=== PATIENT | male | born 1995 | race Hispanic/Latino ===

== ENCOUNTER 2022-01-10 07:50 | Inpatient (IN) | payer OTHER ==
[2022-01-10 08:17] LABS: Mean Corpuscular HGB CONC 33.4 g/dL (32.0-36.0); Mean Corpuscular Hemoglobin 30.6 pg (27.0-31.0); Mean Corpuscular Volume 91.6 fl (78.0-98.0); Mean Platelet Volume 9.5 fL (7.4-10.4); Platelet Count 178 10x3/uL (130-400); RBC Distribution Width 12.1 % (11.5-14.5); Red Blood Cell (RBC) Count 4.91 mill/uL (4.70-6.10); White Blood Cell (WBC) Count 25.6 10x3/uL (4.8-10.8)
[2022-01-10] MEDS ORDERED: Rocuronium Bromide 10 MG/ML (10ML VIAL) ONE (08:17)
[2022-01-10] MEDS ORDERED: Ketamine 50 MG/ML (10ML VIAL) ONE (08:18)
[2022-01-10 08:29] LABS: ALT (SGPT) 129 U/L (8-55); AST (SGOT) 188 U/L (5-34); Albumin 3.7 g/dL (3.5-5.0); Alcohol Less than 10 mg/dL (Less than 10); Alkaline Phosphatase 98 U/L (40-110); Anion Gap 15 mmol/L (10-20); BUN (Urea Nitrogen) 19 mg/dL (8.9-20.6); Bilirubin, Total 0.5 mg/dL (0.2-1.2); Calc. Creatinine Clearance 0 mL/min (70-130); Calcium 8.3 mg/dL (7.8-10.44); Carbon Dioxide 17 mmol/L (22-29); Chloride 108 mmol/L (98-107); Estimated GFR 71; Globulin 2.6 g/dL (2.4-3.5); Glucose 170 mg/dL (70-105); Potassium 3.3 mmol/L (3.5-5.1); Protein, Total 6.3 g/dL (6.0-8.3); Sodium 137 mmol/L (136-145)
[2022-01-10] MEDS ORDERED: FENTANYL 500 MCG/10 ML VIAL 2,000 MCG in Sodium Chloride 0.9% 60 ML IV SCH (08:45)
[2022-01-10 08:47] LABS: Band 34 % (5-11); Lymphocytes 4 % (21-51); MDiff Complete? YES; Monocytes 6 % (0-10); Neutrophil 50 % (42-75); Platelet Morphology Comment Appears Adequate; RBC Morphology Normal; Reactive Lymphocytes 6 % (0-10)
[2022-01-10] MEDS ORDERED: Midazolam HCl 2 mg/2 ml Vial ONE ×2 (08:53→17:08)
[2022-01-10] MEDS ORDERED: Boostrix 0.5 ML (Tdap) VIAL (>/=7 yrs of age) ONE (08:53)
[2022-01-10] MEDS ORDERED: CEFAZOLIN 1 GM VIAL ONE (08:53)
[2022-01-10] MEDS ORDERED: Iopamidol-370 76% 500 ML 1 ML ONE ×2 (08:54→08:55)
[2022-01-10] MEDS ORDERED: Ondansetron PF 4 MG/2 ML Vial IVP PRN (09:17)
[2022-01-10] MEDS ORDERED: hydrALAZINE 20 MG/ML VIAL SLOW IVP PRN (09:17)
[2022-01-10] MEDS ORDERED: TETANUS, DIPHTHERIA TOX,ADULT (TDVAX) 0.5 ML VIAL IM ONE (09:17)
[2022-01-10] MEDS ORDERED: Dextrose 50% Abboject 50 ML SYRINGE SLOW IVP PRN (09:17)
[2022-01-10] MEDS ORDERED: Insulin Regular 300 UNITS/3 ML VIAL SC PRN (09:17)
[2022-01-10] MEDS ORDERED: Dextrose 5% in Water 1,000 ML IV PRN (09:17)
[2022-01-10] MEDS ORDERED: Ventilator Sedation Protocol 1 EACH FS SCH (09:30)
[2022-01-10 09:37] LABS: INR-International Normal Ratio 1.5; PTT 30.9 sec (22.9-36.1); Prothrombin Time 18.7 sec (12.0-14.7)
[2022-01-10 09:38] LABS: Acetaminophen Less than 10.0 mcg/mL (10.0-30.0); Alcohol Less than 10 mg/dL (Less than 10); Salicylate Less than 8.0 mg/dL (15.0-30.0)
[2022-01-10 09:55] LABS: Magnesium 2.2 mg/dL (1.6-2.6); Phosphorus 3.6 mg/dL (2.3-4.7)
[2022-01-10 10:09] LABS: Amphetamine Not Detected (NotDetected); Barbiturates Screen Not Detected (NotDetected); Benzodiazepine Screen Not Detected (NotDetected); Cocaine Metabolite Screen Not Detected (NotDetected); Methadone Not Detected (NotDetected); Methamphetamine Not Detected (NotDetected); Opiate Screen Not Detected (NotDetected); Oxycodone Screen Not Detected (NotDetected); Phencyclidine (PCP) Not Detected (NotDetected); THC/Cannabinoid Screen Not Detected (NotDetected); Tricyclic Screen Not Detected (NotDetected)
[2022-01-10 10:21] LABS: Bacteria/HPF 2+ HPF (None Seen); Bilirubin Negative (Negative); Blood, Urine 3+ (Negative); Glucose, Urine (Dipstick) 50 mg/dL (Negative); Ketone, Urine Trace mg/dL (Negative); Leukocyte 75 Leu/uL (Negative); Nitrite Negative (Negative); Protein, Urine (Dipstick) 100 mg/dL (Neg-Trace); RBC/HPF Greater than 50 HPF (0-3); Specific Gravity, Urine 1.026 (1.002-1.036); Squamous Epithelial None Seen HPF (0-3); Urobilinogen Normal mg/dL (Less than 2); pH, Urine 5.5 (5.0-9.0)
[2022-01-10 10:22] LABS: Clarity Turbid (Clear)
[2022-01-10] MEDS: Sodium Chloride 0.9% 1,000 ML IV SCH ×3 (10:30→19:07)
[2022-01-10] MEDS ORDERED: Sodium Chloride 0.9% 1,000 ML IV SCH (11:00)
[2022-01-10 11:29] LABS: Actual Bicarbonate (HCO3a) 20.9 mEq/L (22-28); Base Excess (BEa) -4.4 mEq/L (-2.0 to +3.0); CO2 Tension 39.2 mmHg (35.0-45.0); Carboxyhemoglobin (COHb) 0.1 gm% (0.0-3.0); Hemoglobin (Hb) 12.9 g/dL (14.0-18.0); O2 Tension (PaO2), arterial 103.4 mmHg (80.0-100.0); Potassium - ABG Lab 3.88 mmol/L (3.70-5.30); pH, Arterial 7.35 (7.35-7.45)
[2022-01-10 11:30] LABS: Puncture Site RRA
[2022-01-10] MEDS ORDERED: Calcium Chloride 13.6 MEQ in Sodium Chloride 0.9% 100 ML IVPB SCH (12:15)
[2022-01-10 12:28] LABS: Lactic Acid 2.7 mmol/L (0.5-2.2)
[2022-01-10] MEDS ORDERED: Cyclobenzaprine 10 MG TAB PO PRN (15:08)
[2022-01-10 16:29] LABS: #Lymphocytes 0.7 thou/uL (1.20-3.40); #Monocytes 1.1 thou/uL (0.11-0.59); #Neutrophils 14.6 thou/uL (1.40-6.50); %Basophils 0.1 % (0.0-1.0); %Eosinophils 0.1 % (0.0-10.0); %Lymphocytes 4.3 % (21.0-51.0); %Monocytes 6.8 % (0.0-10.0); %Neutrophils 88.7 % (42.0-75.0); Hemoglobin 11.4 g/dL (14.0-18.0); Mean Corpuscular HGB CONC 33.5 g/dL (32.0-36.0); Mean Corpuscular Hemoglobin 30.5 pg (27.0-31.0); Mean Corpuscular Volume 91.1 fl (78.0-98.0); Mean Platelet Volume 9.6 fL (7.4-10.4); Platelet Count 131 10x3/uL (130-400); Red Blood Cell (RBC) Count 3.73 mill/uL (4.70-6.10); White Blood Cell (WBC) Count 16.4 10x3/uL (4.8-10.8)
[2022-01-10 16:39] LABS: Lactic Acid 2.7 mmol/L (0.5-2.2)
[2022-01-10 16:45] LABS: Anion Gap 12 mmol/L (10-20); BUN (Urea Nitrogen) 22 mg/dL (8.9-20.6); CK (CPK) 1442 U/L (30-200); Calc. Creatinine Clearance 100 mL/min (70-130); Calcium 8.6 mg/dL (7.8-10.44); Carbon Dioxide 21 mmol/L (22-29); Chloride 110 mmol/L (98-107); Estimated GFR 90; Glucose 140 mg/dL (70-105); Magnesium 1.9 mg/dL (1.6-2.6); Phosphorus 3.6 mg/dL (2.3-4.7); Potassium 4.5 mmol/L (3.5-5.1); Sodium 138 mmol/L (136-145)
[2022-01-10] MEDS ORDERED: Midazolam HCl 2 mg/2 ml Vial SLOW IVP SCH (17:00)
[2022-01-10] MEDS ORDERED: Calcium Chloride 1 GM/10 ML Abboject SYRINGE IVP SCH (19:15)
[2022-01-10] MEDS: Famotidine/PF 20 mg/2ml Vial SLOW IVP SCH (19:16)
[2022-01-11] MEDS ORDERED: Fentanyl CADD 100 ML ONE (01:54)
[2022-01-11] MEDS: Sodium Chloride 0.9% 1,000 ML IV SCH ×4 (06:00→20:52)
[2022-01-11 06:07] LABS: #Lymphocytes 1.7 thou/uL (1.20-3.40); #Monocytes 0.7 thou/uL (0.11-0.59); #Neutrophils 6.5 thou/uL (1.40-6.50); %Basophils 0.2 % (0.0-1.0); %Eosinophils 0.1 % (0.0-10.0); %Lymphocytes 18.6 % (21.0-51.0); %Neutrophils 73.2 % (42.0-75.0); ALT (SGPT) 66 U/L (8-55); AST (SGOT) 72 U/L (5-34); Albumin 2.8 g/dL (3.5-5.0); Alkaline Phosphatase 56 U/L (40-110); Anion Gap 8 mmol/L (10-20); BUN (Urea Nitrogen) 24 mg/dL (8.9-20.6); Bilirubin, Total 0.6 mg/dL (0.2-1.2); CK (CPK) 1771 U/L (30-200); Calc. Creatinine Clearance 118 mL/min (70-130); Calcium 8.6 mg/dL (7.8-10.44); Carbon Dioxide 23 mmol/L (22-29); Chloride 111 mmol/L (98-107); Estimated GFR 110; Globulin 1.8 g/dL (2.4-3.5); Glucose 132 mg/dL (70-105); Hemoglobin 8.6 g/dL (14.0-18.0); Magnesium 1.9 mg/dL (1.6-2.6); Mean Corpuscular HGB CONC 33.5 g/dL (32.0-36.0); Mean Corpuscular Hemoglobin 30.7 pg (27.0-31.0); Mean Corpuscular Volume 91.7 fl (78.0-98.0); Mean Platelet Volume 9.5 fL (7.4-10.4); Phosphorus 2.8 mg/dL (2.3-4.7); Platelet Count 99 10x3/uL (130-400); Platelet Morphology Comment Appears Decreased; Potassium 4.2 mmol/L (3.5-5.1); Protein, Total 4.6 g/dL (6.0-8.3); Sodium 138 mmol/L (136-145); White Blood Cell (WBC) Count 8.9 10x3/uL (4.8-10.8)
[2022-01-11] MEDS: Famotidine/PF 20 mg/2ml Vial SLOW IVP SCH ×2 (08:19→20:50)
[2022-01-11] MEDS ORDERED: Sodium Phosphate 15 MMOL in Sodium Chloride 0.9% 250 ML 250 ML IVPB SCH (09:00)
[2022-01-11] MEDS ORDERED: Prevnar 13-Val Conj/PF 0.5 ML SYRINGE IM ONE (09:00)
[2022-01-11] MEDS: Acetaminophen 325 MG TAB PO SCH ×5 (13:35→23:47)
[2022-01-11] MEDS: Acetaminophen/Codeine 30-300mg Tablet PO SCH ×4 (13:35→23:48)
[2022-01-11] MEDS ORDERED: FLU VACC QS2022-23(6MOS UP)/PF 60 MCG/0.5 ML SYRINGE IM ONE (19:30)
[2022-01-12 05:17] LABS: #Lymphocytes 1.1 thou/uL (1.20-3.40); #Monocytes 0.6 thou/uL (0.11-0.59); %Basophils 0.4 % (0.0-1.0); %Eosinophils 0.1 % (0.0-10.0); %Lymphocytes 14.6 % (21.0-51.0); %Monocytes 7.7 % (0.0-10.0); %Neutrophils 77.2 % (42.0-75.0); Hemoglobin 7.9 g/dL (14.0-18.0); Mean Corpuscular HGB CONC 33.8 g/dL (32.0-36.0); Mean Corpuscular Hemoglobin 30.5 pg (27.0-31.0); Mean Corpuscular Volume 90.2 fl (78.0-98.0); Mean Platelet Volume 9.8 fL (7.4-10.4); Platelet Count 92 10x3/uL (130-400); RBC Distribution Width 11.7 % (11.5-14.5); White Blood Cell (WBC) Count 7.8 10x3/uL (4.8-10.8)
[2022-01-12] MEDS: Acetaminophen 325 MG TAB PO SCH ×3 (05:32→17:06)
[2022-01-12] MEDS: Acetaminophen/Codeine 30-300mg Tablet PO SCH ×3 (05:32→17:06)
[2022-01-12] MEDS: Sodium Chloride 0.9% 1,000 ML IV SCH (05:33)
[2022-01-12 05:57] LABS: Anion Gap 10 mmol/L (10-20); BUN (Urea Nitrogen) 10 mg/dL (8.9-20.6); Calc. Creatinine Clearance 141 mL/min (70-130); Calcium 8.4 mg/dL (7.8-10.44); Carbon Dioxide 25 mmol/L (22-29); Chloride 105 mmol/L (98-107); Estimated GFR 126; Glucose 100 mg/dL (70-105); Phosphorus 2.9 mg/dL (2.3-4.7); Potassium 3.5 mmol/L (3.5-5.1); Sodium 136 mmol/L (136-145)
[2022-01-12] MEDS ORDERED: Furosemide 40 MG/4 ML VIAL SLOW IVP SCH (08:15)
[2022-01-12] MEDS: Famotidine 20 MG TAB PO SCH ×2 (10:38→20:54)
[2022-01-12] MEDS: Senokot S 8.6-50 MG TAB PO SCH (20:54)
[2022-01-13] MEDS: Acetaminophen/Codeine 30-300mg Tablet PO SCH ×5 (00:07→23:43)
[2022-01-13] MEDS: Acetaminophen 325 MG TAB PO SCH ×5 (00:08→23:43)
[2022-01-13 06:41] LABS: #Eosinphils 0.1 thou/uL (0.0-0.7); #Lymphocytes 1.1 thou/uL (1.20-3.40); #Monocytes 0.5 thou/uL (0.11-0.59); #Neutrophils 4.5 thou/uL (1.40-6.50); %Basophils 0.2 % (0.0-1.0); %Eosinophils 1.3 % (0.0-10.0); %Lymphocytes 17.2 % (21.0-51.0); %Monocytes 8.5 % (0.0-10.0); %Neutrophils 72.8 % (42.0-75.0); Mean Corpuscular HGB CONC 34.2 g/dL (32.0-36.0); Mean Corpuscular Volume 90.4 fl (78.0-98.0); Platelet Count 120 10x3/uL (130-400); RBC Distribution Width 11.6 % (11.5-14.5); White Blood Cell (WBC) Count 6.2 10x3/uL (4.8-10.8)
[2022-01-13 07:00] LABS: Anion Gap 12 mmol/L (10-20); BUN (Urea Nitrogen) 15 mg/dL (8.9-20.6); Calc. Creatinine Clearance 119 mL/min (70-130); Calcium 8.9 mg/dL (7.8-10.44); Carbon Dioxide 25 mmol/L (22-29); Chloride 105 mmol/L (98-107); Estimated GFR 125; Glucose 98 mg/dL (70-105); Magnesium 2.2 mg/dL (1.6-2.6); Phosphorus 3.1 mg/dL (2.3-4.7); Potassium 3.6 mmol/L (3.5-5.1); Sodium 138 mmol/L (136-145)
[2022-01-13] MEDS: Senokot S 8.6-50 MG TAB PO SCH ×2 (09:46→19:53)
[2022-01-13] MEDS: Polyethylene Glycol 3350 17 GM Packet PO SCH (09:46)
[2022-01-13] MEDS: Famotidine 20 MG TAB PO SCH ×2 (09:46→19:53)
[2022-01-14] MEDS: Acetaminophen 325 MG TAB PO SCH ×4 (05:30→23:36)
[2022-01-14] MEDS: Acetaminophen/Codeine 30-300mg Tablet PO SCH ×4 (05:30→23:36)
[2022-01-14 05:48] LABS: #Eosinphils 0.1 thou/uL (0.0-0.7); #Lymphocytes 1.4 thou/uL (1.20-3.40); #Monocytes 0.5 thou/uL (0.11-0.59); #Neutrophils 3.7 thou/uL (1.40-6.50); %Basophils 0.2 % (0.0-1.0); %Eosinophils 1.9 % (0.0-10.0); %Lymphocytes 24.1 % (21.0-51.0); %Monocytes 9.4 % (0.0-10.0); %Neutrophils 64.4 % (42.0-75.0); Hemoglobin 9.5 g/dL (14.0-18.0); Mean Corpuscular HGB CONC 33.4 g/dL (32.0-36.0); Mean Corpuscular Hemoglobin 30.2 pg (27.0-31.0); Mean Corpuscular Volume 90.5 fl (78.0-98.0); Mean Platelet Volume 8.9 fL (7.4-10.4); Platelet Count 166 10x3/uL (130-400); RBC Distribution Width 11.8 % (11.5-14.5); Red Blood Cell (RBC) Count 3.16 mill/uL (4.70-6.10); White Blood Cell (WBC) Count 5.8 10x3/uL (4.8-10.8)
[2022-01-14 05:54] LABS: Anion Gap 14 mmol/L (10-20); BUN (Urea Nitrogen) 19 mg/dL (8.9-20.6); CK (CPK) 1483 U/L (30-200); Calc. Creatinine Clearance 125 mL/min (70-130); Calcium 9.2 mg/dL (7.8-10.44); Carbon Dioxide 23 mmol/L (22-29); Chloride 103 mmol/L (98-107); Estimated GFR 127; Glucose 100 mg/dL (70-105); Sodium 136 mmol/L (136-145)
[2022-01-14] MEDS: Acetaminophen/Codeine 30-300mg Tablet PO PRN ×2 (05:54→22:15)
[2022-01-14] MEDS ORDERED: Sodium Chloride 0.9% 1,000 ML IV SCH (06:00)
[2022-01-14] MEDS: Polyethylene Glycol 3350 17 GM Packet PO SCH (09:30)
[2022-01-14] MEDS: Senokot S 8.6-50 MG TAB PO SCH ×2 (09:30→19:59)
[2022-01-14] MEDS: Famotidine 20 MG TAB PO SCH ×2 (09:30→19:59)
[2022-01-14] MEDS ORDERED: Chloraseptic Spray 180 ml Bottle PO PRN (11:12)
[2022-01-14] MEDS ORDERED: Melatonin 3 MG TAB PO PRN (22:09)
[2022-01-15] MEDS: Acetaminophen/Codeine 30-300mg Tablet PO SCH ×2 (05:23→11:06)
[2022-01-15] MEDS: Acetaminophen 325 MG TAB PO SCH ×2 (05:23→11:06)
[2022-01-15] MEDS: Polyethylene Glycol 3350 17 GM Packet PO SCH (08:47)
[2022-01-15] MEDS: Senokot S 8.6-50 MG TAB PO SCH (08:48)
[2022-01-15] MEDS: Famotidine 20 MG TAB PO SCH (08:48)
[2022-01-15 11:42] VITALS: TEMP 97.5
[2022-01-15 15:28] VITALS: BMI 23.2
[2022-01-15 15:43] VITALS: BP 113/71
== END 2022-01-15 16:56 | disposition home or self-care (01) | DRG 963 ==
LOC: ERS 07:50 → CCU 10:33 → SJJU 01-12 14:30
PROVIDERS: ADMIT Surgery; ATTEND Surgery
PROC: 0W9930Z Drainage of Right Pleural Cavity with Drainage Device, Percutaneous Approach (ICD-10-PCS; principal; 2022-01-10)
PROC: 0BH17EZ Insertion of Endotracheal Airway into Trachea, Via Natural or Artificial Opening (ICD-10-PCS; 2022-01-10)
PROC: 5A1935Z Respiratory Ventilation, Less than 24 Consecutive Hours (ICD-10-PCS; 2022-01-10)
PROC: 02H633Z Insertion of Infusion Device into Right Atrium, Percutaneous Approach (ICD-10-PCS; 2022-01-10)
PROC: 0DH67UZ Insertion of Feeding Device into Stomach, Via Natural or Artificial Opening (ICD-10-PCS; 2022-01-10)
PROC: 3E0G76Z Introduction of Nutritional Substance into Upper GI, Via Natural or Artificial Opening (ICD-10-PCS; 2022-01-10)
DX: S27.2XXA Traumatic hemopneumothorax, initial encounter (principal); S36.115A Moderate laceration of liver, initial encounter; J96.00 Acute respiratory failure, unspecified whether with hypoxia or hypercapnia; M62.82 Rhabdomyolysis; N17.9 Acute kidney failure, unspecified; S22.32XA Fracture of one rib, left side, initial encounter for closed fracture; S22.31XA Fracture of one rib, right side, initial encounter for closed fracture; S27.322A Contusion of lung, bilateral, initial encounter; S30.1XXA Contusion of abdominal wall, initial encounter; R31.9 Hematuria, unspecified; R40.2412 Glasgow coma scale score 13-15, at arrival to emergency department; S00.81XA Abrasion of other part of head, initial encounter; S06.2X0A Diffuse traumatic brain injury without loss of consciousness, initial encounter; Z20.822 Contact with and (suspected) exposure to COVID-19; V49.40XA Driver injured in collision with unspecified motor vehicles in traffic accident, initial encounter
CPT/HCPCS: 31500; 32551; 36415; 36416; 36556; 36600; 51702; 70450; 70486; 70498; 71045; 71260; 72125; 74177; 80048; 80053; 80306; 80307; 81003; 81015; 82533; 82550; 82805; 83605; 83735; 84100; 85025; 85610; 85730; 86850; 86900; 86901; 90471; 90686; 90715; 94002; 94003; 94640; 94760; 96374; 96375; G0008; G0390; J0690; J1940; J2250; J3010; J3490; J7050; J7620; Q9967; S0028; U0003; U0005